=== PATIENT | female | born 1955 | race Caucasian/White ===

== ENCOUNTER → 2016-07-23 | Outpatient (CLI) | payer MEDICARE, MEDICAID ==
[~2016-07-23] MED LIST: ALPR1TAB10 PO; CLON0.2T PO; CYCL-259 PO; FLUO40CA2 PO; LOSA100T6 PO; LOVA40TA2 PO; MISO200T4 PO; MORP15TA PO; OMEP-110 PO; PANT40TA5 PO; ZOLP10TA5 PO
== END | disposition home or self-care (01) ==
LOC: CFH 08:30
PROVIDERS: ATTEND Nurse Practitioner Family
DX: K76.0 Fatty (change of) liver, not elsewhere classified (principal); K59.00 Constipation, unspecified; R13.14 Dysphagia, pharyngoesophageal phase
CPT/HCPCS: 76700

== ENCOUNTER → 2016-07-23 | Outpatient (CLI) | payer MEDICARE, MEDICAID | END | disposition home or self-care (01) | LOC: PETCFH 08:32 | PROVIDERS: ATTEND Nurse Practitioner Family | DX: K30 Functional dyspepsia (principal); K59.00 Constipation, unspecified | CPT/HCPCS: 78264; A9541 ==

== ENCOUNTER → 2018-01-17 | Outpatient (CLI) | payer MEDICARE, MEDICAID ==
[~2018-01-17] MED LIST changes: -LOSA100T6 PO; +LOSA100T7 PO
== END | disposition home or self-care (01) ==
LOC: RAD 13:13
PROVIDERS: ATTEND Pain Medicine Pain Medicine
DX: M51.36 Other intervertebral disc degeneration, lumbar region (principal); M47.816 Spondylosis without myelopathy or radiculopathy, lumbar region
CPT/HCPCS: 72148

== ENCOUNTER → 2018-03-02 | Outpatient (CLI) | payer MEDICARE, MEDICAID | END | disposition home or self-care (01) | LOC: CFH 13:51 | PROVIDERS: ATTEND Family Medicine | DX: Z12.31 Encounter for screening mammogram for malignant neoplasm of breast (principal) | CPT/HCPCS: 77067 ==

== ENCOUNTER 2018-09-30 13:47 | Outpatient (CLI) | payer MEDICARE, MEDICAID ==
[~2018-09-30 13:47] MED LIST changes: +LOSA100T14 PO; -LOSA100T7 PO
== END 2018-09-30 23:59 | disposition home or self-care (01) ==
LOC: CVU 13:47 → EDSTATUS 14:00 → CVU 23:59
PROVIDERS: ATTEND Internal Medicine Cardiovascular Disease
DX: I45.19 Other right bundle-branch block (principal); E78.5 Hyperlipidemia, unspecified; J44.9 Chronic obstructive pulmonary disease, unspecified; Z98.61 Coronary angioplasty status
CPT/HCPCS: 93306

== ENCOUNTER 2019-02-10 08:24 | Outpatient (CLI) | payer MEDICARE, MEDICAID ==
[~2019-02-10 08:24] MED LIST changes: +REGADENOSON 0.4 MG/5 ML SYRINGE ONE
== END 2019-02-10 23:59 | disposition home or self-care (01) ==
LOC: CFH 08:24
PROVIDERS: ATTEND Internal Medicine Cardiovascular Disease
DX: I25.10 Atherosclerotic heart disease of native coronary artery without angina pectoris (principal)
CPT/HCPCS: 78452; 93017; A9502; J2785

== ENCOUNTER → 2019-04-02 | Outpatient (CLI) | payer MEDICARE, MEDICAID ==
[~2019-04-02] MED LIST changes: +OMNIPAQUE 350 MG/ML, 100ML BOTTLE ONE; -REGADENOSON 0.4 MG/5 ML SYRINGE ONE
== END | disposition home or self-care (01) ==
LOC: CFH 11:21
PROVIDERS: ATTEND Physician Assistant
DX: N20.0 Calculus of kidney (principal); K21.9 Gastro-esophageal reflux disease without esophagitis
CPT/HCPCS: 74177; Q9967

== ENCOUNTER → 2019-05-13 | Outpatient (CLI) | payer MEDICARE, MEDICAID ==
[~2019-05-13] MED LIST changes: +ALIR75PE INJ; +AMLO-150 PO; +ASPI-496 PO; +BUPR100T11 PO; +CHOL10003 PO; +FENO145T19 PO; +LUBI8CAP4 PO; +MELO7.5T31 PO; +METO25TA35 PO; -OMNIPAQUE 350 MG/ML, 100ML BOTTLE ONE; +PRAV80TA2 PO; +QUET100T PO; +TIZA2CAP PO; +ZOLP5TAB6 PO
[2019-05-13 13:59] LABS: BASOPHILS # (AUTO) 0.05 x10^3/uL (0-0.1); BASOPHILS % (AUTO) 1 % (0-1); EOSINOPHILS # (AUTO) 0.19 x10^3/uL (0-0.4); EOSINOPHILS % (AUTO) 3 % (1-7); LYMPHOCYTES # (AUTO) 1.66 x10^3/uL (1-3.4); LYMPHOCYTES % (AUTO) 24 % (22-44); MD NO; MEAN CORPUSCULAR HEMOGLOBIN 31.7 pg (27.0-34.8); MEAN CORPUSCULAR HGB CONC 33.4 g/dL (32.4-35.8); MEAN CORPUSCULAR VOLUME 95.2 fL (80-100); MEAN PLATELET VOLUME 8.5 fL (7.4-10.4); MONOCYTES # (AUTO) 0.45 x10^3/uL (0.2-0.8); MONOCYTES % (AUTO) 6 % (2-9); NEUTROPHILS # (AUTO) 4.63 x10^3/uL (1.8-6.8); NEUTROPHILS % (AUTO) 66 % (42-75); PLATELET COUNT 370 x10^3/uL (130-400); RED BLOOD COUNT 4.07 x10^6/uL (3.82-5.3); RED CELL DISTRIBUTION WIDTH 13.1 % (9.6-15.2)
[2019-05-13 14:11] LABS: ALANINE AMINOTRANSFERASE 18 U/L (12-78); ALBUMIN 3.6 g/dL (3.4-5.0); ANION GAP 7 mmol/L (5-15); CALCIUM 9.3 mg/dL (8.5-10.1); CHLORIDE 110 mmol/L (98-107); CREATININE 0.81 mg/dL (0.55-1.02)
[2019-05-13 14:14] LABS: ALKALINE PHOSPHATASE 76 U/L (45-117); BILIRUBIN,TOTAL 0.4 mg/dL (0.2-1.0); TOTAL PROTEIN 6.8 g/dL (6.4-8.2)
[2019-05-13 15:00] LABS: MICROSCOPIC INDICATED
== END | disposition home or self-care (01) ==
LOC: STAR 12:58
PROVIDERS: ATTEND Urology
DX: Z01.818 Encounter for other preprocedural examination (principal); N20.0 Calculus of kidney
CPT/HCPCS: 36415; 80053; 81001; 85025; 87086; 87147; 93005

== ENCOUNTER 2019-05-19 12:55 | Day surgery (SDC) | payer MEDICARE, MEDICAID ==
[~2019-05-19] VITALS: Ht 154.9 cm; Wt 71.7 kg
[2019-05-19 13:27] VITALS: BP 126/86
[2019-05-19] MEDS ORDERED: LACTATED RINGERS 1,000 ML IV SCH (13:30)
[2019-05-19] MEDS ORDERED: OXYcodone 5 MG/5 ML ORAL.SOL UDC PO PRN (14:30)
[2019-05-19] MEDS ORDERED: MEPERIDINE/PF 25MG/ML,1ML IVPush PRN (14:30)
[2019-05-19] MEDS ORDERED: ACETAMINOPHEN 325 MG TABLET PO PRN (14:30)
[2019-05-19] MEDS ORDERED: HYDROmorphone 2 MG/ML, 1ML IVPush PRN (14:30)
[2019-05-19] MEDS ORDERED: LABETALOL 5MG/ML, 20ML IV PRN (14:30)
[2019-05-19] MEDS ORDERED: FENTANYL PF 100 MCG/2ML IV PRN (14:30)
[2019-05-19] MEDS ORDERED: hydrALAzine 20 MG/ML, 1ML IV PRN (14:30)
[2019-05-19] MEDS ORDERED: ONDANSETRON 2MG/ML, 2ML IV PRN (14:30)
[2019-05-19] MEDS ORDERED: PROMETHAZINE 25 MG/ML, 1ML IV PRN (14:30)
[2019-05-19 14:33] LABS: INTERNATIONAL NORMALIZED RATIO 0.94 (0.93-1.1)
[2019-05-19] MEDS ORDERED: MIDAZOLAM 1 MG/ML, 2ML ONE (14:51)
[2019-05-19] MEDS ORDERED: FENTANYL PF 250 MCG/5ML ONE (14:52)
[2019-05-19] MEDS ORDERED: DEXAMETHASONE 4 MG/ML, 1ML ONE (15:29)
[2019-05-19] MEDS ORDERED: CEFAZOLIN 1,000 MG ONE (15:31)
[2019-05-19] MEDS ORDERED: PROPOFOL 10 MG/ML, 20ML ONE (16:09)
[2019-05-19] MEDS ORDERED: ONDANSETRON 2MG/ML, 2ML ONE (16:10)
== END 2019-05-19 18:30 | disposition home or self-care (01) ==
LOC: OUT 12:55
PROVIDERS: ATTEND Urology
DX: N20.0 Calculus of kidney (principal); I25.10 Atherosclerotic heart disease of native coronary artery without angina pectoris; I10 Essential (primary) hypertension; Z79.1 Long term (current) use of non-steroidal anti-inflammatories (NSAID); Z79.82 Long term (current) use of aspirin; Z79.01 Long term (current) use of anticoagulants; Z79.899 Other long term (current) drug therapy; Z95.5 Presence of coronary angioplasty implant and graft
CPT/HCPCS: 36415; 50590; 85610; 85730; J0690; J1100; J2250; J2405; J2704; J3010; J7120

== ENCOUNTER 2019-07-27 12:22 | Outpatient (CLI) | payer MEDICARE, MEDICAID | END 2019-07-27 23:59 | disposition home or self-care (01) | LOC: RAD 12:22 | PROVIDERS: ATTEND Urology | DX: N20.0 Calculus of kidney (principal) | CPT/HCPCS: 74018 ==

== ENCOUNTER 2020-04-06 12:19 | Outpatient (CLI) | payer MEDICARE, MEDICAID ==
[~2020-04-06 12:19] MED LIST changes: +MISO200T15 PO; -MISO200T4 PO; -PANT40TA5 PO; +PANT40TA6 PO
== END 2020-04-06 23:59 | disposition home or self-care (01) ==
LOC: CFH 12:19
PROVIDERS: ATTEND Family Medicine
DX: Z12.31 Encounter for screening mammogram for malignant neoplasm of breast (principal)
CPT/HCPCS: 77063; 77067

== ENCOUNTER → 2020-07-07 | Outpatient (CLI) | payer MEDICARE, MEDICAID ==
[~2020-07-07] MED LIST changes: -CYCL-259 PO; +CYCL10TA2 PO
== END | disposition home or self-care (01) ==
LOC: CFH 10:49
PROVIDERS: ATTEND Internal Medicine Cardiovascular Disease
DX: I36.1 Nonrheumatic tricuspid (valve) insufficiency (principal); E78.5 Hyperlipidemia, unspecified; J44.9 Chronic obstructive pulmonary disease, unspecified; Z98.61 Coronary angioplasty status
CPT/HCPCS: 93306